=== PATIENT | male | born 1980 | race Caucasian/White ===

== ENCOUNTER 2018-01-01 18:19 | Inpatient (IN) | payer OTHER ==
[~2018-01-01] VITALS: Ht 182.9 cm; Wt 90.7 kg
--- NOTE | 2018-01-01 01:51 | NUR ---
ABHIN CATAPRES AND VISTARIL ADMINISTRATION PATIENT ANXIOUS, SWEATING, STILL UNABLE TO SLEEP, PACING THE HALLWAY AND IRRITATED. WILL MONITOR FOR EFFECTIVENESS Addendum: 01/02/18 at 0350 by MAURO ZHOU LVN ERROR CHARTING
--- NOTE | 2018-01-01 20:05 | NUR ---
Pre-admission assessment Patient is a 37-year old, male, seen at intake, AAOx4, no SOB and with flushed skin, sweating and tremors noted at this time. Patient also observed to be fidgety and appears tense. Discussed with patient admission policies of the unit. Patient is coherent and able to respond to questions appropriately. Patient reported that he was sober for 6 months and relapsed 3 weeks ago. He stated that the cause of his relapse was because of the influence of his friends who invited him to go to a [employer] club. He further stated, "We did meth at the club and it went downhill from there." Pt is ambulatory with steady gait. Pt reports that he uses Xanax, Methamphetamine and took 4 [place] pills for the first time since his relapse 3 weeks ago. Vital signs taken and as follows: LT=264/79, P=116, O2 sat on RA=98%, RR=22, T=98.7. Pt verbalized instructions and teachings regarding disposal of narcotic and other controlled home meds, unit protocols such as taking of vital signs Q4H and handling and disposal of contraband.
--- NOTE | 2018-01-01 20:25 | NUR ---
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 HEIGHT 6'0 AND 200 LBS. UA PROVIDED .PATIENT IS NOT INTOXICATED BUT IS HAVING WITHDRAWAL FROM XANAX. PATIENT IS ANXIOUS, RESTLESS, FIDGETY, UNABLE TO SIT STILL DURING INTERVIEW, FACE IS FLUSHED, SWEATING, NAUSEATED, FINE TREMORS ON BILATERAL HAND NOTED AND C/O HEADACHE. BODY CHECK DONE. SKIN INTACT. LUNGS CLEAR AND ABDOMEN SOFT AND NON-DISTENDED. BOWEL SOUNDS ACTIVE IN ALL QUADRANT. LAST BOWEL MOVEMENT TODAY. NO DIFFICULTY URINATING. PATIENT REPORTS PMH OF ANXIETY AND SEIZURE , LAST ONE WAS WHEN HE WAS 29 YEARS OLD DUE TO BENZO WITHDRAWAL. PATIENT REQUESTED TO FULL CODE AND ON REGULAR DIET. PATIENT STATES HE'S SEEKING TREATMENT BECAUSE "I DON'T WANT TO DO THIS SHIT ANYMORE" I'M EMBARRASSED AND DISAPPOINTED. I WAS SOBER FOR 6 MONTHS AND I JUST WANT TO CELEBRATE FOR FEW DRINKS BUT I FUCKED UP". I WANT TO GET BACK TO WHERE I STARTED FROM BEING SOBER". PATIENT STATES "I WOKE UP TODAY AND DECIDED THAT I'M NOT FUCKING SHIT UP AGAIN" . HE WANTS TO STAY SOBER FOR MAINLY HIMSELF. 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 PATIENT SMOKES ONLY WHEN DETOXING. PATIENT'S LONGEST PERIOD OF SOBRIETY WAS 6 MONTHS IN JUN 2017. HE RELAPSED 3 WEEKS AGO. PATIENT DOES NOT HAVE SUICIDE HISTORY AND OVERDOSE HISTORY. NO SI/HI. TREATMENT HISTORY 1.XANAX PO-STARTED USING AT AGE 25. HE TAKES 4 MG DAILY FOR 3 WEEKS. LAST USE WAS 4 MG ON 12/31/17 2.METHAMPHETAMINE IV-STARTED USING AT AGE 34. PATIENT INJECTS 2-3 GRAMS DAILY FOR 3 WEEKS. LAST USE WAS 2 GRAMS ON 01/01/18 3. NORCO 10/325 MG PO-STARTED USING AT AGE 25. PATIENT TOOK ONE TIME OF 4 TABS S PRIOR TO ADMISSION SINCE HIS RELAPSE 3 WEEKS AGO.TREATMENT HISTORY ABLE TO CHANGE -3 MONTHS - JUN 2017 [facility] RECOVERY -JUN [address] SEPULVEDA. PATIENT BROUGHT IBUPROFEN AND TRIPLE ANTIBIOTIC OINTMENT-RECONCILED. PATIENT ORIENTED TO SURROUNDINGS AND HOW TO USE CALL LIGHT. CALL LIGHT IN REACH. WILL CONTINUE TO MONITOR. PATIENT'S CIWA DURING ADMISSION IS 15. Addendum: 01/02/18 at 0214 by MAURO ZHOU LVN DUPLICATE NOTE
--- NOTE | 2018-01-01 20:25 | NUR ---
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 HEIGHT 6'0 AND 200 LBS. UA PROVIDED .PATIENT IS NOT INTOXICATED BUT IS HAVING WITHDRAWAL FROM XANAX. PATIENT IS ANXIOUS, RESTLESS, FIDGETY, UNABLE TO SIT STILL DURING INTERVIEW, FACE IS FLUSHED, SWEATING, NAUSEATED, FINE TREMORS ON BILATERAL HAND NOTED AND C/O HEADACHE. BODY CHECK DONE. SKIN INTACT. LUNGS CLEAR AND ABDOMEN SOFT AND NON-DISTENDED. BOWEL SOUNDS ACTIVE IN ALL QUADRANT. LAST BOWEL MOVEMENT TODAY. NO DIFFICULTY URINATING. PATIENT REPORTS PMH OF ANXIETY AND SEIZURE , LAST ONE WAS WHEN HE WAS 29 YEARS OLD DUE TO BENZO WITHDRAWAL. PATIENT REQUESTED TO FULL CODE AND ON REGULAR DIET. PATIENT STATES HE'S SEEKING TREATMENT BECAUSE "I DON'T WANT TO DO THIS SHIT ANYMORE" I'M EMBARRASSED AND DISAPPOINTED. I WAS SOBER FOR 6 MONTHS AND I JUST WANT TO CELEBRATE FOR FEW DRINKS BUT I FUCKED UP". I WANT TO GET BACK TO WHERE I STARTED FROM BEING SOBER". PATIENT STATES "I WOKE UP TODAY AND DECIDED THAT I'M NOT FUCKING SHIT UP AGAIN" . HE WANTS TO STAY SOBER FOR MAINLY HIMSELF. 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 PATIENT SMOKES ONLY WHEN HE'S IN DETOX. PATIENT'S LONGEST PERIOD OF SOBRIETY WAS 6 MONTHS IN JUN 2017. HE RELAPSED 3 WEEKS AGO. PATIENT DOES NOT HAVE SUICIDE HISTORY AND OVERDOSE HISTORY. NO SI/HI. TREATMENT HISTORY 1.XANAX PO-STARTED USING AT AGE 25. HE TAKES 4 MG DAILY FOR 3 WEEKS. LAST USE WAS 4 MG ON 12/31/17 2.METHAMPHETAMINE IV-STARTED USING AT AGE 34. PATIENT INJECTS 2-3 GRAMS DAILY FOR 3 WEEKS. LAST USE WAS 2 GRAMS ON 01/01/18 3. NORCO 10/325 MG PO-STARTED USING AT AGE 25. PATIENT TOOK ONE TIME OF 4 TABS S PRIOR TO ADMISSION SINCE HIS RELAPSE 3 WEEKS AGO.TREATMENT HISTORY ABLE TO CHANGE -3 MONTHS - JUN 2017 [facility] RECOVERY -JUN [address] SEPULVEDA. PATIENT BROUGHT IBUPROFEN AND TRIPLE ANTIBIOTIC OINTMENT-RECONCILED. PATIENT ORIENTED TO SURROUNDINGS AND HOW TO USE CALL LIGHT. CALL LIGHT IN REACH. WILL CONTINUE TO MONITOR. PATIENT'S CIWA DURING ADMISSION IS 15.
[2018-01-01] MEDS ORDERED: LOPERAMIDE HCL 2 MG CAPSULE PO PRN ×2 (20:30)
[2018-01-01] MEDS ORDERED: HYDROXYZINE PAMOATE 25 MG CAPSULE PO PRN (20:30)
[2018-01-01] MEDS ORDERED: LORAZEPAM 1 MG TABLET PO PRN (20:30)
[2018-01-01] MEDS ORDERED: ONDANSETRON 4 MG/2 ML VIAL IM PRN (20:30)
[2018-01-01] MEDS ORDERED: ACETAMINOPHEN 325 MG TABLET PO PRN (20:30)
[2018-01-01] MEDS ORDERED: LORAZEPAM 2 MG/1 ML VIAL IM PRN (20:30)
[2018-01-01] MEDS ORDERED: MIRALAX 17 GM POWD.PACK PO PRN (20:30)
[2018-01-01] MEDS ORDERED: DICYCLOMINE HCL 20 MG TABLET PO PRN (20:30)
[2018-01-01] MEDS ORDERED: MAGNESIUM HYDROXIDE 30 ML LIQUID UDC PO PRN (20:30)
[2018-01-01 20:56] LABS: *AMPHETAMINE, URINE POSITIVE (NEGATIVE); *BARBITURATE, URINE NEGATIVE (NEGATIVE); *CANNABINOID, URINE NEGATIVE (NEGATIVE); *COCCAINE, URINE NEGATIVE (NEGATIVE); *OPIATE, URINE POSITIVE (NEGATIVE); *PHENCYCLIDINE SCREEN,URINE NEGATIVE (NEGATIVE)
[2018-01-01] MEDS ORDERED: LORAZEPAM 1 MG TABLET PO ONE (21:00)
[2018-01-01] MEDS: IBUPROFEN 600 MG TABLET PO PRN (21:30)
[2018-01-01] MEDS: ONDANSETRON ODT 4 MG TAB.RAPDIS SL PRN (21:31)
--- NOTE | 2018-01-01 21:31 | NUR ---
ONE TIME ATIVAN, PRN ZOFRAN AND MOTRIN ADMINISTRATION PATIENT ANXIOUS, RESTLESS, IRRITATED, NAUSEATED AND C/O HEADACHE. CIWA 15. WILL MONITOR FOR EFFECTIVENESS
[2018-01-01] MEDS: diphenhydrAMINE 50 MG CAPSULE PO PRN (21:54)
--- NOTE | 2018-01-01 21:54 | NUR ---
PRN BENADRYL ADMINISTRATION PATIENT REQUESTS FOR SLEEP AID. WILL MONITOR FOR EFFECTIVENESS
--- NOTE | 2018-01-01 22:01 | NUR ---
PRN ZOFRAN RE-ASSESSMENT PATIENT STATES ZOFRAN EFFECTIVE, NAUSEA CEASED.
--- NOTE | 2018-01-01 22:31 | NUR ---
PRN MOTRIN RE-ASSESSMENT PATIENT STATES PRN MOTRIN HELPFUL AND EFFECTIVE. PAIN TOLERATED AT THIS TIME.
[2018-01-01] MEDS ORDERED: NEOM28OI22 TP (23:06)
[2018-01-01] MEDS ORDERED: IBUP-2314 PO (23:06)
[2018-01-01 23:19] LABS: BASOPHILS # (AUTO) 0.1 K/uL (0.0-8.0); BASOPHILS % (AUTO) 0.7 % (0.0-2.0); EOSINOPHILS # (AUTO) 0.1 K/uL (0.0-0.7); EOSINOPHILS % (AUTO) 0.8 % (0.0-7.0); HEMATOCRIT 46.9 % (36.7-47.1); HEMOGLOBIN 15.9 g/dL (12.5-16.3); LYMPHOCYTES # (AUTO) 1.9 K/uL (20.0-40.0); LYMPHOCYTES % (AUTO) 19.3 % (20.5-51.5); MEAN CORPUSCULAR HEMOGLOBIN 28.8 uug (23.8-33.4); MEAN CORPUSCULAR HGB CONC 34 g/dL (32.5-36.3); MEAN CORPUSCULAR VOLUME 84.7 fL (73.0-96.2); MONOCYTES % (AUTO) 10.4 % (0.0-11.0); NEUTROPHILS # (AUTO) 6.9 K/uL (1.8-8.9); NEUTROPHILS % (AUTO) 68.8 % (38.5-71.5); PLATELET COUNT (AUTO) 247 K/uL (152-348); RED BLOOD CELL COUNT(AUTO) 5.53 MIL/uL (4.06-5.63)
[2018-01-01 23:28] LABS: ALANINE AMINOTRANSFERASE 105 U/L (16-63); ALKALINE PHOSPHATASE 65 U/L (50-136); AMYLASE 58 U/L (25-115); ASPARTATE AMINOTRANSFERASE 39 U/L (15-37); BILIRUBIN,TOTAL 0.4 mg/dL (0.2-1.0); CARBON DIOXIDE 27 mmol/L (21-32); CHLORIDE 105 mmol/L (98-107); CREATININE 1.2 mg/dL (0.6-1.3); GLUCOSE 91 mg/dL (74-106); LIPASE 168 U/L (73-393); MAGNESIUM 2.6 mg/dL (1.8-2.4); POTASSIUM 4.7 mmol/L (3.5-5.1); TOTAL PROTEIN, SERUM 7.9 g/dL (6.4-8.2); UREA NITROGEN, BLOOD 23 mg/dL (7-18)
[2018-01-01] MEDS: LORAZEPAM 1 MG TABLET PO PRN (23:47)
--- NOTE | 2018-01-01 23:47 | NUR ---
KAREN ATIVAN ADMINISTRATION PATIENT ANXIOUS, RESTLESS, TREMORS ON BILATERAL HANDS, PACING AROUND HIS ROOM, IRRITATED AND DIFFICULTY FALLING ASLEEP. ALEXANDRA 13. WILL MONITOR FOR EFFECTIVENESS Addendum: 01/02/18 at 0405 by MAURO ZHOU LVN ALEXANDRA Ward
[2018-01-01 23:55] LABS: ETHANOL < 3 MG/DL (0-0)
[2018-01-02] VITALS: BP 144/78
[2018-01-02] MEDS: CLONIDINE HCL 0.1 MG TABLET PO PRN ×2 (01:51→08:09)
--- NOTE | 2018-01-02 01:51 | NUR ---
PRN CATAPRES AND VISTARIL ADMINISTRATION PATIENT ANXIOUS, SWEATING, STILL UNABLE TO SLEEP, PACING THE HALLWAY AND IRRITATED. WILL MONITOR FOR EFFECTIVENESS
[2018-01-02] MEDS: LORAZEPAM 1 MG TABLET PO PRN ×2 (02:28→08:08)
--- NOTE | 2018-01-02 02:28 | NUR ---
PRN ATIVAN ADMINISTRATION PATIENT STILL ANXIOUS, RESTLESS, UNABLE TO SLEEP, IRRITATED , AGITATED AND ASKING TO GO DOWN TO SMOKE FREQUENTLY. CIWA 17.
[2018-01-02] MEDS: MAG HYDROX/AL HYDROX/SIMETH 30 ML LIQUID UDC PO PRN (02:58)
--- NOTE | 2018-01-02 02:58 | NUR ---
PRN MYLANTA ADMINISTRATION PATIENT C/O HEARTBURN. WILL MONITOR FOR EFFECTIVENESS
--- NOTE | 2018-01-02 03:58 | NUR ---
PRN MYLANTA RE-ASSESSMENT PATIENT STATES MYLANTA EFFECTIVE.
[2018-01-02 04:00] VITALS: BP 113/69
--- NOTE | 2018-01-02 07:25 | NUR ---
END OF SHIFT NOTE PATIENT SLEPT 0 HOURS. FLUID 1,506. INTAKE ML. VOIDED X 1 . NO BM. MONITORED PATIENT THROUGHOUT SHIFT. PATIENT WAS NEWLY ADMITTED FOR BENZO /METH WITHDRAWAL. PATIENT WAS GIVEN ATIVAN , MOTRIN AND ZOFRAN UPON ADMISSION. CIWA 15. AT 2154, PATIENT REQUESTED SLEEP AID, BENADRYL WAS GIVEN. PATIENT HAD DIFFICULTY FALLING ASLEEP. AT 2347, PATIENT WAS GIVEN [place] ATIVAN , HE WAS ANXIOUS , RESTLESS, PACING HALLWAY AND IN THE ROOM. AT 0151, PRN CATAPRES AND VISTARIL, STILL UNABLE TO SLEEP, ANXIOUS AND RESTLESS. AT 0228, PATIENT WAS ANXIOUS, PACING THE HALLWAY, HE GOES TO SMOKE FREQUENTLY, AGITATED, IRRITABLE AND RESTLESS, PRN ATIVAN GIVEN. PRN MYLANTA WAS C/O HEARTBURN, PRN MYLANTA GIVEN, EFFECTIVE. PATIENT DID NOT SLEEP THROUGHOUT THE NIGHT. WILL ENDORSE TO NEXT SHIFT. SAFETY MEASURES IN PLACE. CALL LIGHT IN REACH. WILL CONTINUET O MONITOR.
[2018-01-02 08:00] VITALS: BP 127/84
--- NOTE | 2018-01-02 08:05 | NUR ---
START OF SHIFT: RECEIVED PT A/O X 4. HE IS FIDGETY,RESTLESS AND IRRITABLE. HE IS PACING THE HALLWAYS.HE REPORTS ANXIETY,RESTLESSNESS,SWEATS AND H/A 8/10 ON PAIN SCALE. HE STATES HE DID NOT SLEEP AT ALL LAST NIGHT. CIWA 17. PRN ATIVAN 2 MG PO GIVEN TO MANAGE S/S OF W/D. PRN CLONIDINE AND MOTRIN ALSO ADMINISTERED TO ASSIST IN REDUCING SYMPTOMS. HE WAS ENCOURAGED TO INCREASE FLUIDS AND REST TODAY. HE REFUSED PPD. WILL CONTINUE TO MONITOR AND MANAGE S/S OF W/D.
[2018-01-02] MEDS: MULTIVITAMINS,THERAPEUTIC TABLET PO SCH (08:08)
[2018-01-02] MEDS: IBUPROFEN 600 MG TABLET PO PRN ×2 (08:09→22:01)
[2018-01-02] MEDS ORDERED: TUBERCULIN,PURIF.PROT.DERIV. 5 TU/0.1 ML TEST ID ONE (09:00)
--- NOTE | 2018-01-02 09:05 | NUR ---
Prn Motrin and Clonidine effective. Pt states his G?A is 2 on scale. He states his chills and sweats are reduced. Addendum: 01/02/18 at 8 by NIKITA MENCHACA RN H/A
[2018-01-02 12:00] VITALS: BP 136/80
--- NOTE | 2018-01-02 12:00 | NUR ---
PRN Ativan 1 mg po given to manage s/s of w/d. CIWA 13. Will monitor effectiveness of PRN.
--- NOTE | 2018-01-02 13:00 | NUR ---
prn Ativan effective AEB CIWA 10. he states he feels a little better. Will continue to monitor and offer support.
[2018-01-02] MEDS ORDERED: DIAZEPAM 5 MG TABLET PO PRN (14:00)
[2018-01-02] MEDS ORDERED: 4 DAY TAPER VALIUM-SERENITY PROTOCOL PO PRN (14:00)
[2018-01-02] MEDS ORDERED: DIAZEPAM 10 MG TABLET PO PRN ×2 (14:00)
[2018-01-02] MEDS: DIAZEPAM 10 MG TABLET PO SCH ×2 (14:37→22:01)
[2018-01-02] MEDS ORDERED: IBUPROFEN 200 MG TABLET PO PRN (15:00)
--- NOTE | 2018-01-02 15:00 | NUR ---
Pt starting on Valium taper per MD. Will administer as ordered.
[2018-01-02 16:00] VITALS: BP 134/84
--- NOTE | 2018-01-02 19:00 | NUR ---
END OF SHIFT: Pt started on Valium taper today to manage s/s of w/d which include restlessness,anxiety,sweats and irritability.He was fidgety and pacing the hallways this am. He did not sleep all night the night before. He presents with anxious mood and congruent affect. Last CIWA 12. PRN Ativan given X 2 before taper started and effective. He fell asleep about 1700. Bed locked and low. Call naidu in reach. Will pass shift report to oncoming night nurse.
--- NOTE | 2018-01-02 19:30 | NUR ---
START OF SHIFT Pt a 37 y/o male admitted on 01/01/18 for ETOH withdrawal. Pt will start a Valium taper tomorrow. Last CIWA 12 and PRN Clonidine, Motrin, Ativan 2 mg, Ativan 1 mg administered during day shift. Upon assessment pt presents with anxiety, irritability, restlessness, intermittent sweats, intermittent chills, intermittent tremors, flushed skin, headache, difficulty falling and staying asleep, and unkempt room. Medications due. Safety measures in place. Call light within reach. Will continue to monitor.
[2018-01-02 20:00] VITALS: BP 136/76
[2018-01-02] MEDS: diphenhydrAMINE 50 MG CAPSULE PO PRN (22:01)
--- NOTE | 2018-01-02 22:01 | NUR ---
PRN MOTRIN AND BENADRYL ADMINISTRATION Pt reports headache 10/10 and requests sleep aid. Safety measures in place. Call light within reach. Will continue to monitor.
--- NOTE | 2018-01-02 23:01 | NUR ---
PRN MOTRIN AND BENADRYL REASSESSMENT Pt laying in bed with eyes closed, medications noted effective. Safety measures in place. Call light within reach. Will continue to monitor.
[2018-01-03] VITALS: BP 94/64
--- NOTE | 2018-01-03 | NUR ---
CIWA DEFERRED Pt laying in bed with eyes closed, CIWA deferred, to be assessed when pt is awake per orders. Respirations even and unlabored. Safety measures in place. Call light within reach. Will continue to monitor.
[2018-01-03] MEDS: MAG HYDROX/AL HYDROX/SIMETH 30 ML LIQUID UDC PO PRN ×2 (03:10→17:19)
--- NOTE | 2018-01-03 03:10 | NUR ---
PRN MAALOX ADMINISTRATION Pt woke up, pt reports heartburn. Safety measures in place. Call light within reach. Will continue to monitor.
[2018-01-03 04:00] VITALS: BP 123/82
--- NOTE | 2018-01-03 04:10 | NUR ---
PRN MAALOX REASSESSMENT Pt laying in bed with eyes closed, medication noted effective. Respirations even and unlabored. Safety measures in place. Call light within reach. Will continue to monitor.
[2018-01-03] MEDS: IBUPROFEN 600 MG TABLET PO PRN ×2 (04:59→15:04)
--- NOTE | 2018-01-03 04:59 | NUR ---
PRN MOTRIN ADMINISTRATION Pt complains of pain in right ankle, pt presents with limp and states 8/10 pain upon ambulation. Safety measures in place. Call light within reach. Will continue to monitor.
--- NOTE | 2018-01-03 05:59 | NUR ---
PRN MOTRIN REASSESSMENT Pt laying in bed with eyes closed, medication noted effective. Respirations even and unlabored. Safety measures in place. Call light within reach. Will continue to monitor.
[2018-01-03 07:09] LABS: HEPATITIS B SURFACE AG Negative (Negative)
--- NOTE | 2018-01-03 07:17 | NUR ---
END OF SHIFT Pt a 37 y/o male admitted on 01/01/18 for ETOH withdrawal. Pt will start a Valium taper today. Pt presented with anxiety, irritability, restlessness, intermittent sweats, intermittent chills, intermittent tremors, flushed skin, headache, difficulty falling and staying asleep, and unkempt room. Pt also complained of 8/10 pain in right ankle, pt presents with a limp. Pt states, "I don't remember how it happened or when." Scheduled medications and PRN Motrin x 2, Benadryl, and Maalox administered, effective in S/S of withdrawal AEB CIWA 12 lowered to CIWA 11 during shift. Pt slept 8 hours. Intake 1150 ml, void x 2, stool x 2. Safety measures in place. Call light within reach. Pts needs have been met. Endorsed to day shift nurse.
--- NOTE | 2018-01-03 07:30 | NUR ---
Start of Shit Note Pt a 37 y/o male admitted on 01/01/18 for the medically managed withdrawal from benzodiazepines, and methamphetamine salts. Pt. ordered a valium taper to manage withdrawal symptoms. Endorse pt. presented with anxiety, irritability, restlessness, intermittent sweats, intermittent chills, intermittent tremors, flushed skin, headache, difficulty falling and staying asleep. Received pt. in room. Pt. in bed with eyes closed. Pt. arousable to name and touch. Pt. is disheveled and malodorous. During previous shift PRN Motrin x 2, Benadryl, and Maalox administered. Last CIWA 11 during shift. Pt slept 8 hours. Safety measures in place. Call light within reach. Will continue to monitor pt.s behavior for safety.
[2018-01-03] MEDS: MULTIVITAMINS,THERAPEUTIC TABLET PO SCH (08:06)
[2018-01-03] MEDS: DIAZEPAM 5 MG TABLET PO SCH ×4 (08:06→20:08)
[2018-01-03 08:12] VITALS: BP 107/50
[2018-01-03 12:27] VITALS: BP 121/69
--- NOTE | 2018-01-03 15:04 | NUR ---
PRN Medication Pt. approached the nursing station and complained of right ankle pain 01/09. Pt. given Motrin. Will continue to monitor pt.'s behavior for safety and medication effectiveness.
[2018-01-03 16:00] VITALS: BP 120/68
--- NOTE | 2018-01-03 16:04 | NUR ---
PRN Re-Assessment Pt. reports pain 09/09. Medication effective. Will continue to monitor pt.'s behavior for safety.
--- NOTE | 2018-01-03 19:13 | NUR ---
End of Shift Note Pt a 37 y/o male admitted on 01/01/18 for the medically managed withdrawal from benzodiazepines, and methamphetamine salts. Pt. ordered a valium taper to manage withdrawal symptoms. Pt. remained A/O X 4 throughout shift and presented with anxiety, irritability, restlessness, intermittent sweats, intermittent chills, intermittent tremors, flushed skin, headache. Encouraged pt. to maintain a hygienic person and personal space. PRN Motrin given for right ankle pain. ordered X-ray of right foot today which was carried out this morning. Last CI 16. Safety measures in place. Call light within reach. Will endorse pt.s behavior to oncoming shift.
--- NOTE | 2018-01-03 19:13 | NUR ---
START OF SHIFT NOTE: The patient is a 37 year old male admitted for withdrawal from Benzodiazepines (Xanax), Opioid([place]), and Methamphetamine. He is alert and oriented x4, ambulatory with stable gait. The patient is cooperative, has soft and clear speech. Patient remains compliant with treatment, and diet regime. The patient reports NKA, Regular Diet, is on Full Code, is on Fall an Seizures Precautions. The patient reports history of withdrawal-Induced Seizures History ( Last was in 2009). Latest COWS=17 at 1704. Patient presents with moderate withdrawal symptoms such as anxiety, agitation, nervousness, abdominal cramps, nausea, headache, nasal congestion, myalgia, sweating, tremors, body aches, Goosebumps, fatigue, and restlessness. PRN Motrin PO administrated for Right ankle pain level "7/10" at 1504 was effective, per day shift nurse report. X-Ray for Right ankle done as ordered, and results placed in chart. The patient remains compliant with treatment, medications, and diet regime. Encouraged to fluids intake as tolerated. Encouraged to increase oral fluids as tolerated. The patient attended groups activities. Calm and safety environment with minimized noises was provided. All needs met. Safety measures: Call light within reach, bed is locked in the lowest position, and padded rails up x2. Patient endorsed by day shift nurse. Will continue to monitor closely.
[2018-01-03] MEDS ORDERED: FAMOTIDINE 20 MG TABLET PO ONE (19:30)
[2018-01-03 20:00] VITALS: BP 120/67
[2018-01-03] MEDS: diphenhydrAMINE 50 MG CAPSULE PO PRN (20:16)
--- NOTE | 2018-01-03 20:16 | NUR ---
PRN BENADRYL 50 MG PO ADMINISTRATION. The patient c/o insomnia and asked aid. PRN Benadryl 50 mg PO administrated with full glass of water as ordered. THe patient tolerated well. Safe and calm environment provided. All needs met. Safety measures: Call light within reach, bed locked in lowest position, and padded bed rails up x2. Will continue to monitor closely.
--- NOTE | 2018-01-03 21:16 | NUR ---
PRN BENADRYL RE-ASSESSMENT. The patient is sleeping. RR:15. Respirations are unlabored and even. Safe and calm environment provided. All needs met. Safety measures: Call light within reach, bed locked in lowest position, and padded bed rails up x2. Will continue to monitor closely. Addendum: 01/03/18 at 2306 by DANI SOL RN PRN Benadryl PO administrated for insomnia at 2016 was effective.
--- NOTE | 2018-01-04 | NUR ---
VS REFUSED. CIWA DEFERRED VS refused. CIWA deferred due to patient sleeping, and to be assessed when the patient is awake. RR:14. Respirations are unlabored and even. Safe and calm environment provided. All needs met. Safety measures: Call light within reach, bed locked in lowest position, and padded bed rails up x2. Will continue to monitor closely.
--- NOTE | 2018-01-04 04:00 | NUR ---
VS REFUSED, CIWA DEFERRED VS refused, CIWA deferred at 0400 due to patient sleeping; to be assessed and scored while patient is awake. Respirations are even and unlabored. RR: 15. Safe and calm environment provided. All needs met. Safety measures in place: Call light within reach, bed locked in lowest position, and padded bed rails up bilaterally. Will continue to monitor closely.
--- NOTE | 2018-01-04 07:23 | NUR ---
END OF SHIFT NOTE: Patient continues 5 day Valium Taper for withdrawal from Benzodiazepines (Xanax), Opioid([place]), and Methamphetamine. Patient is alert and oriented x4. Patient is fully ambulatory with steady gate. Patient appears anxious, agitated, nervous, easy overwhelmed, worry, and sad. Patient c/o "anxiety and irritability". Patient presented with withdrawal symptoms such as anxiety, moderately fidgety and restless, agitation, c/o nervousness, sweating, tremors, body aches, and restlessness. CIWA=12 at 2000. VS refused, CIWA deferred at 0000 and at 0400 due to patient sleeping; to be assessed and scored while patient is awake. Patient presented with withdrawal symptoms such as anxiety, moderately fidgety and restless, agitation, c/o nervousness, nausea, abdominal cramps, headache, sweating, Goosebump, tremors, body aches, myalgia, and restlessness. PRN Benadryl 50 mg PO administrated for insomnia @2025, and was effective. Patient remains compliant with treatment, medications and diet regime. Patient slept 9 hours, intake 1,500 ml, voided x1. Encouraged to increase oral fluids as tolerated. Calm and safety environment with minimized noises was provided. All needs met. Safety measures in the place: Call light within reach, bed in the lowest position and locked, padded rails up x2. Patient endorsed to day shift nurse. Addendum: 01/05/18 at 0440 by DANI SOL RN Patient continues 6 day Valium Taper for withdrawal from Benzodiazepines (Xanax), Opioid([place]), and Methamphetamine.
--- NOTE | 2018-01-04 07:30 | NUR ---
START OF SHIFT NOTE: Pt. is a 37 y/o male admitted for the medically managed withdrawal from Benzodiazepines, Opiates, and methamphetamines. Pt. was placed on a 5 day valium taper to manage his withdrawal symptoms. Pt. is A/O X 4. Patient is alert and oriented x4. Endorse pt.s behavior from previous shift as being anxious and irritable but redirectable. Last CIWA=12 at 1999 PRN Benadryl 50 mg PO administrated for insomnia @2025, and was effective. Patient remains compliant with treatment, medications and diet regime. Patient slept 9 hours. Received pt. in room. Pt. laying in bed with eyes closed. No signs of SOB noted. Pt. arousable to name but falls back to sleep. Calm and safety environment with minimized noises was provided. All needs met. Safety measures in the place: Call light within reach, bed in the lowest position and locked, padded rails up x2. Will continue to monitor pt.s behavior for safety.
[2018-01-04 08:00] VITALS: BP 147/72
[2018-01-04] MEDS: IBUPROFEN 600 MG TABLET PO PRN (09:00)
[2018-01-04] MEDS: FAMOTIDINE 20 MG TABLET PO SCH (09:00)
[2018-01-04] MEDS: MULTIVITAMINS,THERAPEUTIC TABLET PO SCH (09:00)
[2018-01-04] MEDS: DIAZEPAM 5 MG TABLET PO SCH ×3 (09:00→20:10)
--- NOTE | 2018-01-04 09:00 | NUR ---
PRN Assessment During morning medication pass pt. complain of 7/10 right ankle pain. Pt. given Motrin with his morning medication regiment. Will continue to monitor pt.'s behavior for medication effectiveness and safety.
--- NOTE | 2018-01-04 10:00 | NUR ---
PRN Re-Assessment Pt. States that his right ankle doesn't hurt as much. Pt. reports his pain level as a 3/10 and tolerable. Medication effective, will continue to monitor pt.'s behavior for safety.
[2018-01-04 12:00] VITALS: BP 151/83
[2018-01-04 16:00] VITALS: BP 126/65
--- NOTE | 2018-01-04 19:10 | NUR ---
START OF SHIFT NOTE: The patient is a 37 year old male continues ordered 4 Day Valium Taper for withdrawal from Benzodiazepines (Xanax), Opioid([place]), and Methamphetamine. The patient remains compliant with treatment, medications, and diet regime. Withdrawal symptoms will be closely monitoring. Patient is alert and oriented x4 with stable gait. He is alert and oriented x4, ambulatory, with stable gait. The patient is cooperative, has soft and clear speech. Patient remains compliant with treatment, and diet regime. Patient denies History of Seizures. Patient denies SI/HI. The most recent CIWA=11 at 1600: Patient presented with moderate withdrawal signs and symptoms of anxiety, agitation, depression, nervousness, tremors, abdominal cramping, nasal congestion, sweating, , fatigue, and restlessness, per day shift outgoing nurse report. VSWNL. Respirations are even and unlabored. Skin is intact, warm, and dry to touch. Encouraged to fluids intake as tolerated. Encouraged to increase oral fluids as tolerated. The patient attended groups activities. Calm and safety environment with minimized noises was provided. All needs met. Safety measures: Call light within reach, bed is locked in the lowest position, and padded rails up x2. Patient endorsed by day shift nurse. Will continue to monitor closely.
--- NOTE | 2018-01-04 19:10 | NUR ---
END OF SHIFT NOTE: Pt. is a 37 y/o male admitted for the medically managed withdrawal from Benzodiazepines, Opiates, and methamphetamines. Pt. was placed on a 5 day valium taper to manage his withdrawal symptoms. Pt. is A/O X 4 and noted as being anxious and irritable but redirectable. Last CIWA=11 at 1600 PRN Motrin given for right ankle pain. Patient remained compliant with treatment plan and medication regiment. All needs met. Safety measures in the place: Call light within reach, bed in the lowest position and locked, padded rails up x2. Will endorse pt.s behavior to oncoming shift.
[2018-01-04 20:00] VITALS: BP 145/82
[2018-01-04] MEDS: diphenhydrAMINE 50 MG CAPSULE PO PRN (20:10)
--- NOTE | 2018-01-04 20:10 | NUR ---
PRN BENADRYL 50 MG 1 CAP PO ADMINISTRATION Patient c/o insomnia and asked aid. Benadryl 50 mg PO administrated PRN with full glass of water as ordered. Patient tolerated well. All needs met. Safe and calm environment with minimized noises was provided. Safety measures on place. Call light within reach, bed in lowest position locked, padded rails up bilaterally. Will continue to monitor closely.
--- NOTE | 2018-01-04 21:10 | NUR ---
RE-ASSESSMENT Patient is sleeping. RR:16. Respirations even and unlabored. Benadryl 50 mg PO administrated PRN for insomnia at 2009 was effective. Safe and calm environment with minimized noises was provided. All needs met. Safety measures on place. Call light within reach, bed in lowest position locked, padded rails up bilaterally. Will continue to monitor closely.
[2018-01-04] MEDS: MAG HYDROX/AL HYDROX/SIMETH 30 ML LIQUID UDC PO PRN (23:09)
--- NOTE | 2018-01-04 23:09 | NUR ---
PRN MAALOX SUSPENSION 30 ML 1 UNIT PO ADMINISTRATION Patient c/o heartburn and asked aid. PRN Maalox Suspension 30 mg PO administrated PRN with full glass of water as ordered. Patient tolerated well. All needs met. Safe and calm environment with minimized noises was provided. Safety measures on place. Call light within reach, bed in lowest position locked, padded rails up bilaterally. Will continue to monitor closely.
[2018-01-04] MEDS: ONDANSETRON ODT 4 MG TAB.RAPDIS SL PRN (23:12)
--- NOTE | 2018-01-04 23:12 | NUR ---
PRN ZOFRAN ODT 4 MG SL ADMINISTRATION Patient c/o nausea and vomiting x2. PRN Zofran 4 mg SL administrated PRN as ordered. Patient tolerated well. All needs met. Safe and calm environment with minimized noises was provided. Safety measures on place. Call light within reach, bed in lowest position locked, padded rails up bilaterally. Will continue to monitor closely.
--- NOTE | 2018-01-05 | NUR ---
VS REFUSED, CIWA DEFERRED VS refused, CIWA deferred d/t pt sleeping, to assess while pt is awake as ordered. Respirations are unlabored and even. RR: 14. All needs met. Safe and calm environment with minimized noises was provided. Safety measures on place. Call light within reach, bed in lowest position locked, padded rails up bilaterally. Will continue to monitor closely.
--- NOTE | 2018-01-05 00:09 | NUR ---
PRN MAALOX PO RE-ASSESSMENT Patient is sleeping. RR: 15. Respirations are even and unlabored. PRN Maalox Suspension 30 mg PO administrated for heartburn at 2309 was effective Safe and calm environment with minimized noises was provided. All needs met. Safety measures on place. Call light within reach, bed in lowest position locked, padded rails up bilaterally. Will continue to monitor closely.
--- NOTE | 2018-01-05 00:12 | NUR ---
PRN ZOFRAN SL RE-ASSESSMENT Patient is sleeping. RR:14. Respirations are even and unlabored. PRN Zofran 4 mg SL administrated for nausea and vomiting at 2312 was effective. Safe and calm environment with minimized noises was provided. All needs met. Safety measures on place. Call light within reach, bed in lowest position locked, padded rails up bilaterally. Will continue to monitor closely.
--- NOTE | 2018-01-05 04:00 | NUR ---
VS REFUSED, CIWA DEFERRED VS refused, CIWA deferred at 0400 due to patient sleeping; to be assessed and scored while patient is awake. Respirations are even and unlabored. RR: 17. Safe and calm environment provided. All needs met. Safety measures in place: Call light within reach, bed locked in lowest position, and padded bed rails up bilaterally. Will continue to monitor closely.
--- NOTE | 2018-01-05 07:15 | NUR ---
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 Withdrawal symptoms closely monitoring. Patient is alert and oriented x4, ambulatory with steady gait. He is appears sad, worried, and to be with anxious mood and liable affect. Encouraged to use of Relaxation Techniques: deep breathing exercises, guided imagery, and visualization. No S/S of distress noted during my shift. 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 The most recent CIWA=12 at 1999. COWS/CIWA taken when patient's awake during night. VS refused, COWS/CIWA deferred at 0000 and 0400 due to patient sleeping; to be assessed and scored while patient is awake. Respirations are unlabored and even. Skin is intact, warm and dry to touch. PRN Benadryl 50 mg PO administrated for insomnia at 2009, PRN Maalox Suspension 30 ml PO administrated for heartburn at 2308, and PRN Zofran 4 mg SL administrated for nausea and vomiting at 2311, and were effective were effective. Safe and calm environment with minimized noises was provided. Skin remains intact, warm and dry to touch. Encouraged to increase oral fluid intake as tolerated. Patient slept for 7 hours, intake 1,355 ml, voided x2. All needs met. Safety measures: Call light within reach, bed in the lowest position and locked, and padded bed rails up x2. Patient endorsed to day shift nurse.
--- NOTE | 2018-01-05 07:45 | NUR ---
START OF SHIFT Rcvd endorse form ongoing nurse, client is in bed, a/o x 4. Client presents with anxious mood, blunt affect, clammy skin, tremors felt not observed, and agitated. Client reports body aches, sweats, shaking, headache, nausea, stomach cramps, decreased appetite, and fatigue. Encourage client to increase PO fluid as tolerated to facilitate detox. Encourage attendance to group therapy to learn skills to maintain sober. PRN administered and noted per protocol. Last CIWA 12 @ 1999. Last of 4 day Diazepam taper. Seizure precautions rendered. Call light within reach.
[2018-01-05] MEDS: MULTIVITAMINS,THERAPEUTIC TABLET PO SCH (08:13)
[2018-01-05] MEDS: FAMOTIDINE 20 MG TABLET PO SCH (08:13)
[2018-01-05] MEDS: IBUPROFEN 600 MG TABLET PO PRN (08:13)
--- NOTE | 2018-01-05 08:13 | NUR ---
PRN Motrin 600mg PO administered for R ankle pain 02/09. slight swelling noted, encourage client to elevate R foot. Call light within reach.
[2018-01-05 08:15] VITALS: BP 132/75
[2018-01-05] MEDS ORDERED: DIAZEPAM 5 MG TABLET PO SCH (09:00)
--- NOTE | 2018-01-05 09:13 | NUR ---
Reassess PRN Motrin 600mg client reports relief from R ankle pain 3/10, but tolerable. Call light within reach.
--- NOTE | 2018-01-05 10:46 | NUR ---
PRN Tylenol 650mg PO administered for R ankle pain 11/09. Call light within reach.
--- NOTE | 2018-01-05 11:13 | NUR ---
AMA note: Patient verbalized he no longer wants to continue treatment/detox, does not want to go to treatment afterwards and just wants to go home. multiple staff members attempted to speak to patient but were unsuccessful. explained risk and benefits of leaving against medical. pt verbalized he understood.
== END 2018-01-05 11:10 | disposition left against medical advice (07) | DRG 894 ==
LOC: SRC 19:34
PROVIDERS: ADMIT Family Medicine Addiction Medicine; ATTEND Family Medicine Addiction Medicine
PROC: HZ2ZZZZ Detoxification Services for Substance Abuse Treatment (ICD-10-PCS; principal; 2018-01-01)
PROC: HZ41ZZZ Group Counseling for Substance Abuse Treatment, Behavioral (ICD-10-PCS; 2018-01-04)
DX: F13.239 Sedative, hypnotic or anxiolytic dependence with withdrawal, unspecified (principal); F11.10 Opioid abuse, uncomplicated; F41.9 Anxiety disorder, unspecified; F15.23 Other stimulant dependence with withdrawal; Z81.1 Family history of alcohol abuse and dependence
CPT/HCPCS: 36415; 70030-TC; 73610; 80307; 80324; 80361; 83690; 83735; 84443; 85025; 86592; 86705; 86803; 87340; 87806; A4663; G0480; Q0162; Q0163